=== PATIENT | male | born 1985 | race Caucasian/White ===

== ENCOUNTER 2019-12-22 13:37 | Emergency (ER) | payer SELFPAY ==
[~2019-12-22] VITALS: Ht 188 cm; Wt 86.2 kg
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
--- NOTE | 2019-12-22 14:03 | NUR ---
[facility] OFFICERS AT BEDSIDE Addendum: 12/22/19 at 1407 by ANTONIO JETTD OFFICERS AT BEDSIDE FOR POSSIBLE OD.
[2019-12-22] MEDS ORDERED: ONDANSETRON HCL/PF 4 MG/2 ML VIAL ONE (14:28)
[2019-12-22] MEDS ORDERED: ONDANSETRON HCL/PF 4 MG/2 ML VIAL IVP ONE (14:30)
[2019-12-22] MEDS ORDERED: ONDANSETRON HCL/PF - ER 4 MG/2 ML VIAL IV ONE (14:30)
[2019-12-22] MEDS ORDERED: IV NS 0.9% 500 ML BAG IV ONE (15:00)
--- NOTE | 2019-12-22 15:47 | NUR ---
IV removed. Catheter intact and site benign. Pressure and 4x4 applied to site. No bleeding noted. Patient given written and verbal discharge instructions. Patient verbalizes understanding of instructions. Patient is ambulatory with steady gait. Refuses offer of [facility] placement. Patient given list of available shelters in surrounding area.
[2019-12-22 15:49] VITALS: BP 138/84
== END 2019-12-22 15:59 | disposition home or self-care (01) ==
LOC: ER 13:39
DX: F19.10 Other psychoactive substance abuse, uncomplicated (principal); R11.10 Vomiting, unspecified
CPT/HCPCS: 96374; 99283; J2405 ×2; J7030